=== PATIENT | female | born 1955 | race Caucasian/White ===

== ENCOUNTER 2020-02-09 18:33 | Inpatient (IN) ==
[2020-02-09] MEDS ORDERED: TYLENOL PO ONE (19:13)
--- NOTE | 2020-02-09 19:50 | Diag Imaging Result Doc PS360 ---
EXAM: CHEST-PORTABLE 02/09/2020 HISTORY: SOB TECHNIQUE: Erect AP portable at 1941 COMMENT: There is alveolar opacity in the right costophrenic angle region which was not present on 03/03/2018. Otherwise are has been no significant change. IMPRESSION: Right lower lobe pneumonia. Electronically signed by Joel Aguilar 02/09/2020 7:48 PM
[2020-02-09 19:57] LABS: AGAP 14; ALB/GLOB RATIO 0.8; ALBUMIN 3.3 g/dL (3.5-5.0); ALKALINE PHOSPHATASE 98 U/L (32-104); BUN 11 mg/dL (8-22); CALCIUM 9.2 mg/dL (8.8-10.2); CHLORIDE 100 mmol/L (98-107); COSMO 272; CREATININE 0.8 mg/dL (0.5-0.9); ESTIMATED GFR > 60; GLUCOSE 105 mg/dL (70-104); GOT 19 U/L (10-30); GPT 6 U/L (10-36); POTASSIUM 5.1 mmol/L (3.5-5.1); SODIUM 136 mmol/L (136-145); TCO2 22 mmol/L (25-35); TOTAL BILIRUBIN 0.42 mg/dL (0.20-1.00); TOTAL PROTEIN 7.2 g/dL (6.3-8.3)
[2020-02-09 20:12] LABS: BASO% 0.8 % (0.0-0.8); HEMATOCRIT 24.7 % (37.0-47.0); HEMOGLOBIN 6.1 g/dL (12.0-16.0); MCH 13.5 PG (27-31); MCHC 24.7 g/dL (33-37); MCV 54.6 FL (81-99); MPV 8.7 FL (7.4-10.4); PLT 997 X1000 (130-400); RBC 4.52 XMIL (4.2-5.4); RDW 26.2 % (11.5-14.5); WBC 26.05 X1000 (4.8-10.8)
[2020-02-09] MEDS ORDERED: LEVAQUIN 750 MG/D5W 750 MG/150 ML IVPB IV ONE (20:15)
[2020-02-09] MEDS ORDERED: NS 1,000 ML IV ONE (20:15)
[2020-02-09 20:26] LABS: ANISOCYTOSIS 4+; EOS 1 % (1-10); HYPOCHROM 4+; LYMPHS 8 % (21-51); MONO 9 % (1-9); NRBC 8 % (0-0); SEGS 81 % (42-75)
[2020-02-09 20:28] LABS: MICROCYTOSIS 1+
[2020-02-09 20:29] LABS: TARGET CELLS OCCASIONAL
--- NOTE | 2020-02-09 20:53 | PROVIDER DOCUMENTATION ---
This chart was entered by Kaur Araya Scribe, acting as scribe for Mallory Cho CRNP. HPI-General Adult - General Chief Complaint: Fever Stated Complaint: FEVER/SOB/ Time Seen by Provider: 02/09/20 19:11 Source: patient Allergies/Adverse Reactions: Patient Allergies Allergy/AdvReac Type Severity Reaction Status Date / Time Penicillins AdvReac RASH Verified 02/09/20 18:59 Home Medications: Home Medication List Medication Instructions Recorded Confirmed Last Taken Type Ondansetron Odt [Zofran 4 mg Odt] 4 mg PO Q6H PRN PRN #20 tab 03/03/18 Unknown Rx Cephalexin [Keflex] 500 mg PO Q6HR #40 cap 03/07/18 Unknown Rx Hydrochlorothiazide 12.5 mg PO DAILY 03/07/18 03/07/18 Unknown History Lisinopril 40 mg PO DAILY 03/07/18 03/07/18 Unknown History Metoprolol Tartrate [Lopressor] 100 mg PO BID 03/07/18 03/07/18 Unknown History Ondansetron Odt [Zofran 8Mg Odt] 8 mg PO Q8H PRN PRN #10 tab 03/07/18 Unknown Rx - History of Present Illness -Gen Adult Nature of Presenting Problems: 64yof presents to ED cc dry cough, fever, SOB, sore throat with dryness and burning and nausea for last 3 days. She has hx of Endometrial cancer, HTN and DCHF. She is febrile but in no acute distress upon exam. Location of Pain/Injury: reports: generalized Quality of Pain: reports: aching Severity: reports: mild, moderate Onset/Duration: reports: 3 days ago Context/Activities at Onset: reports: light activity Modifying Factors: improves with: nothing Associated Symptoms: reports: cough (dry), fever/chills, nausea, shortness of breath Similar Symptoms Previously?: No Recently seen or treated by another doctor?: No Review of Systems - Adult - REVIEW OF SYSTEMS - ADULT Constitutional: reports: see HPI, chills, fever. denies: fatique Eyes: reports: no symptoms reported Ears, Nose, Mouth & Throat: reports: see HPI, throat pain. denies: ear pain Cardiovascular: reports: no symptoms reported Respiratory: reports: see HPI, cough (dry) Gastrointestinal: reports: see HPI, nausea Genitourinary: reports: no symptoms reported Musculoskeletal: reports: no symptoms reported Integumentary: reports: no symptoms reported Neurological: reports: no symptoms reported Psychiatric: reports: no symptoms reported Endocrine: reports: no symptoms reported Hematologic/Lymphatic: reports: no symptoms reported Allergic/Immunologic: reports: no symptoms reported All Other Systems: Reviewed and Negative Past History - Adult - PAST MEDICAL HISTORY-ADULT Review of Records: reports: Nursing Assessment Review, Medications Reviewed, Social history reviewed & non-contributory. Major Childhood Illnesses: reports: denies history Cardiovascular: reports: HTN Respiratory: reports: denies history Gastrointestinal: reports: denies history Obstetrical/Gynecological: reports: denies history Genitourinary: reports: chronic UTI's Musculoskeletal: reports: arthritis Neurological: reports: denies history Endocrine/Immune: reports: denies history Other Conditions: reports: denies history - PRIOR SURGERIES/PROCEDURES Surgical/Procedure History: reports: none - IMMUNIZATION STATUS Childhood Immunizations: See Nurse Assessment Flu Vaccine: See Nurse Assessment - FAMILY HISTORY Family History: reviewed, not pertinent - SOCIAL HISTORY Smoking: denies Physical Exam-General - PHYSICAL EXAM-ADULT Initial Vital Signs Reviewed: Yes - CONSTITUTIONAL General Appearance: appears well, alert. negative: anxious, combative - EYES Eyes: PERRL/EOMI, pink conjunctivae. negative: photophobia - HEAD, EARS, NOSE, MOUTH & THROAT HENMT: normocephalic/atraumatic, moist mucous membranes. negative: angioedema - NECK Neck: non-tender, full range of motion, supple, normal inspection. negative: C- spine tenderness - RESPIRATORY Respiratory: chest non-tender, lungs clear, normal breath sounds. negative: crackles, rhonchi - CARDIOVASCULAR Cardiovascular: normal peripheral pulses, regular rate, rhythm, no edema, no murmur. negative: bradycardia, tachycardia - GASTROINTESTINAL (ABDOMEN) Abdominal Exam: normal bowel sounds, non tender, soft. negative: guarding, rebo und - LYMPHATIC Lymphatic: no adenopathy. negative: enlargement - MUSCULOSKELETAL Back Exam: normal inspection, no CVA tenderness, no vertebral tenderness Extremity: swelling (R>L bLE edema). negative: deformity - SKIN Integumentary: normal color, warm/dry. negative: diaphoresis, jaundice - PSYCHIATRIC Psych/Mental Status: normal mood/affect, oriented x 3. negative: anxious Progress - PLAN OF CARE/RESULTS Progress/Plan/Lab Results: Vital Signs - 8 hr 02/09/20 18:57 Temperature 100 F H Pulse Rate 99 H Respiratory Rate 18 Blood Pressure 146/77 O2 Sat by Pulse Oximetry 98 02/09/20 18:50 Influenza Screen - Final Nasopharyngeal 02/09/20 18:50 Group A Strep Rapid Antigen - Final Throat Laboratory Results - last 24 hr 02/09/20 02/09/20 02/09/20 18:50 18:50 18:50 WBC RBC Hgb Hct MCV MCH MCHC RDW Std Deviation Plt Count MPV Neut % (Auto) Lymph % (Auto) Norman % (Auto) Eos % (Auto) Baso % (Auto) Neut # (Auto) Lymph # (Auto) Norman # (Auto) Eos # (Auto) Baso # (Auto) Sodium 136 Potassium 5.1 Chloride 100 Carbon Dioxide 22 L Anion Gap 14 BUN 11 Creatinine 0.8 Estimated GFR/1.73 m2 > 60 BUN/Creatinine Ratio 14 Glucose 105 H Calculated Osmolality 272 Calcium 9.2 Total Bilirubin 0.42 AST 19 ALT 6 L Alkaline Phosphatase 98 Troponin T High Sens 23 H Total Protein 7.2 Albumin 3.3 L Globulin 3.9 Albumin/Globulin Ratio 0.8 Plasma Lactate 2.4 H 02/09/20 20:04 WBC 26.05 H RBC 4.52 Hgb 6.1 L Hct 24.7 L MCV 54.6 L MCH 13.5 L MCHC 24.7 L RDW Std Deviation 26.2 H Plt Count 997 H MPV 8.7 Neut % (Auto) Not Reportable Lymph % (Auto) Not Reportable Norman % (Auto) Not Reportable Eos % (Auto) Not Reportable Baso % (Auto) 0.8 Neut # (Auto) Not Reportable Lymph # (Auto) Not Reportable Norman # (Auto) Not Reportable Eos # (Auto) Not Reportable Baso # (Auto) 0.20 Sodium Potassium Chloride Carbon Dioxide Anion Gap BUN Creatinine Estimated GFR/1.73 m2 BUN/Creatinine Ratio Glucose Calculated Osmolality Calcium Total Bilirubin AST ALT Alkaline Phosphatase Troponin T High Sens Total Protein Albumin Globulin Albumin/Globulin Ratio Plasma Lactate Orders Category Date Time Status CHEST-PORTABLE [RAD] Stat Exams 02/09/20 19:12 Completed BLOOD CULTURE [BLDCUL] Stat Lab 02/09/20 20:05 Ordered CBC WITH DIFF [HEME] Stat Lab 02/09/20 20:04 Results COMPREHENSIVE METABOLIC PANEL [CHEM] Stat Lab 02/09/20 18:50 Completed DIRECT STREP Stat Lab 02/09/20 18:50 Completed INFLUENZA SCREEN A/B Stat Lab 02/09/20 18:50 Completed LACTATE, PLASMA [CHEM] Stat Lab 02/09/20 18:50 Completed TROPONIN T HIGH SENSITIVITY Stat Lab 02/09/20 18:50 Completed Acetaminophen [Tylenol] Med 02/09/20 19:13 Discontinued 1,000 mg PO NOW ONE EKG [EKG] Stat Ther 02/09/20 19:12 Ordered Result Diagrams: 02/09/20 20:04 02/09/20 18:50 - XRAY 1 XRAY: Bilateral XRAY Study: Chest Impression: See EMR Report (IMPRESSION: Right lower lobe pneumonia. Electronically signed by Joel Aguilar 02/09/2020 7:48 PM) - CONSULTS/PCP/HOSPITALIST Notification #1 *Consult/PCP/Hospitalist*: Dr. Waddell Time Discussed: 20:52 Consult Disposition: Admit Departure - Departure Date of Disposition Decision: 02/09/20 Time of Disposition Decision: 20:37 DIAGNOSIS: Right lower lobe pneumonia Qualifiers: Pneumonia type: due to unspecified organism Qualified Code(s): J18.9 - Pneumonia, unspecified organism Disposition: ADMITTED INPATIENT 09 Certified Medical Emergency: Emergent Condition: Stable Referrals and Follow-Ups: Jacqueline Dumont CRNP [Primary Care Provider] - - Critical Care Note This patient required my direct & personal management of CC.: No Attestation - Physician/ CAROLE Attestation Patient care was provided by Advanced Practice Provider:: Yes Advanced Practice Provider:: Mallory Cho Advanced Practice Provider documentation review:: The Mid-level provider documentation, treatment plan and medical decision making was reviewed by the physician who agrees with all treatment and medical decision making by the MLP. The physician spent face to face time with patient:: Yes Advanced Practice Provider documentation review:: Supervising physician onsite and consulted in the evaluation and care of this patient. The physician did have a face to face encounter with the patient. This chart was documented by the indicated scribe, (Kaur Araya Scribe) and accurately reflects the services I performed and decisions made by me, Mallory Cho CRNP, as attested by the provider's signature.
--- NOTE | 2020-02-09 22:13 | HISTORY AND PHYSICAL ---
PRIMARY CARE PROVIDER: Jacqueline Dumont. CHIEF COMPLAINT: Shortness of breath, fever, sore throat for 3 days. HISTORY OF PRESENTING ILLNESS: A 64-year-old female with a history of endometrial cancer and hypertension presented to emergency department with 3 days history of having shortness of breath, sore throat, and fever. The patient states that the symptoms were worsening. Subsequently she had come to the emergency department. In the ED she was evaluated. She had imaging done which did show pneumonia. Subsequently she will require admission for further management. At the time of my examination, patient denied any headache, nausea, vomiting, diarrhea, hemoptysis, melena, weight changes, but complained of fever, sore throat and shortness of breath. PAST MEDICAL HISTORY: Includes endometrial cancer, hypertension. PAST SURGICAL HISTORY: Hysterectomy, splenectomy, bowel resection. ALLERGIES: Penicillin. CURRENT MEDICATIONS: Include lisinopril 40 mg p.o. daily, metoprolol 100 mg p.o. b.i.d. SOCIAL HISTORY: She denies any history of smoking, alcohol or illicit drug use. FAMILY HISTORY: No history of coronary disease. REVIEW OF SYSTEMS: Fourteen point review of systems is as in HPI. Other systems negative. PHYSICAL EXAMINATION: GENERAL: Cooperative, friendly female. She is resting more comfortably now. VITAL SIGNS: Temperature 100 degrees, pulse 99, respiration 18, blood pressure 146/77. HEENT: Atraumatic, normocephalic. Extraocular movements intact. PERRLA. NECK: No masses. CHEST: Bibasilar rales. CARDIOVASCULAR: Regular rate and rhythm. ABDOMEN: Soft. Positive bowel sounds. EXTREMITIES: No edema. NEUROLOGIC: She is awake, alert, oriented x3. : No bladder distention. SKIN: Warm. LABORATORIES AND STUDIES: WBC 26.05, hemoglobin 6.1, hematocrit 24.7, platelets 997,000. Sodium 136, potassium 5.1, chloride 100, CO2 22, BUN is 11, creatinine 0.8, glucose is 105. Plasma lactate is 2.4. ASSESSMENT: This is a 64-year-old female with a history of endometrial cancer, hypertension who presented to emergency department with 3 days history of having sore throat, fever and shortness of breath. She was evaluated in the emergency department. She was found to have pneumonia on imaging. Subsequently, she will require admission for further management. 1. Pneumonia. 2. Hypertension. 3. Thrombocytosis. PLAN: 1. We will admit patient to medical floor with telemetry. 2. We will check blood cultures. Start patient on IV antibiotics. 3. Monitor blood pressure closely. 4. Repeat laboratories and do further evaluation for thrombocytosis. 5. We will put patient on DVT prophylaxis with SCDs. 6. We will continue to follow and reassess, make further recommendation based on patient's clinical course. cc: Wander Waddell MD
[2020-02-09] MEDS ORDERED: ZOFRAN IV PRN (22:53)
[2020-02-10] MEDS: NS 1,000 ML IV SCH ×3 (00:30→21:36)
[2020-02-10 01:25] LABS: URINE SOURCE CLEAN CATCH
[2020-02-10 01:29] LABS: BILIRUBIN URINE NEGATIVE (NEGATIVE); BLOOD URINE NEGATIVE (NEGATIVE); COLOR YELLOW; GLUCOSE URINE NEGATIVE (NEGATIVE); KETONE URINE NEGATIVE (NEGATIVE); LEUKOCYTES URINE NEGATIVE (NEGATIVE); NITRITE URINE NEGATIVE (NEGATIVE); PH URINE 6.5; PROTEIN URINE NEGATIVE (NEGATIVE); SP GRAVITY URINE 1.008; TURBIDITY URINE CLEAR (CLEAR); UR EPITHELIAL CELLS <10 /HPF (<10); URINE BACTERIA NEGATIVE /HPF; URINE RBC <10 /HPF (<10); URINE WBC <10 /HPF (<10); UROBILINOGEN URINE NORMAL (NORMAL)
[2020-02-10 06:26] LABS: BASO# 0.05 X1000 (0.0-0.2); BASO% 0.2 % (0.0-0.8); EOS# 0.22 X1000 (0.0-0.7); HEMATOCRIT 25.5 % (37.0-47.0); HEMOGLOBIN 6.2 g/dL (12.0-16.0); LYMPH# 4.57 X1000 (1.2-3.4); LYMPH% 20.5 % (20.5-51.1); MCH 13.7 PG (27-31); MCHC 24.3 g/dL (33-37); MCV 56.2 FL (81-99); MONO% 12.6 % (1.7-9.3); NEUT# 14.61 X1000 (1.4-6.5); NEUT% 65.7 % (42.2-75.2); PLT 210 X1000 (130-400); RBC 4.54 XMIL (4.2-5.4); RDW 26.5 % (11.5-14.5); WBC 22.25 X1000 (4.8-10.8)
[2020-02-10 06:39] LABS: AGAP 13; BUN 11 mg/dL (8-22); CALCIUM 9.2 mg/dL (8.8-10.2); CHLORIDE 102 mmol/L (98-107); COSMO 272; CREATININE 0.7 mg/dL (0.5-0.9); ESTIMATED GFR > 60; GLUCOSE 110 mg/dL (70-104); POTASSIUM 4.1 mmol/L (3.5-5.1); SODIUM 136 mmol/L (136-145); TCO2 21 mmol/L (25-35)
[2020-02-10] MEDS: PRINIVIL PO SCH (08:40)
[2020-02-10] MEDS: LOPRESSOR PO SCH ×2 (08:40→21:34)
--- NOTE | 2020-02-10 18:44 | SEPSIS: TISSUE PERFUSION ASSMT ---
Sepsis: Tissue Perfusion Assmt - Physical Exam Assessment Date: 02/10/20 Time Assessment Initialized: 18:40 Vital Signs: Last Vital Signs Temp 98.8 F 02/10/20 17:05 Pulse 95 H 02/10/20 17:05 Resp 20 02/10/20 17:05 BP 156/72 02/10/20 17:05 Pulse Ox 100 02/10/20 17:05 Height 5 ft 4 in Weight 125.333 kg Lung Sounds: crackles Heart Sounds: Regular Capillary Refill Time: Less Than 2 Seconds Peripheral Pulse Evaluation: radial (R): 2+, radial (L): 2+, dorsalis-pedis (R): 2+, dorsalis-pedis (L): 2+, posterior tibialis (R): 2+, posterior tibialis (L): 2+ Skin Exam: pink - Alternative Fluid Bolus Bolus Option: Alternative Fluid Resuscitation Bolus for morbidly obese patients with a BMI >30, Refer to [facility] [place] Body Weight Chart for Reference. - Impression Impression: Tissue Perfusion Adequate (Continue IV fluids at current rate and follow up lactated tomorrow morning.)
--- NOTE | 2020-02-10 19:28 | PROGRESS NOTE ---
DATE: 02/10/2020 INTERVAL HISTORY: Ms. Samayoa has not had any more fever episodes, except the temperature of 100 degrees initially. She remains partly tachycardic. She is saturating well. She was found to have a hemoglobin of 6.2, though she denies any bleeding. Apparently, her hemoglobin was 9.9 before. Her platelet count dropped from 997,000 to 210,000, though she previously had splenectomy. SUBJECTIVE: Ms. Samayoa denies any chest pain. She denies shortness of breath at rest. She is coughing but it is dry. She is feeling slightly better than before. PHYSICAL EXAMINATION: Vital signs: Temperature 98.8 degrees, pulse 95, respiratory rate 20, blood pressure 156/72 she is saturating 100% on 2 L nasal cannula. General: Ms. Samayoa is not in acute distress. HEENT: Oral cavity is moist. Lungs: Air entry bilaterally equal. No wheeze or rhonchi. She had crackles in the right infrascapular region. Cardiovascular: S1, S2 normal. No tachycardic. No murmur or gallop. Abdomen: Obese, soft, nontender. Extremities: No lower extremity edema. Neurologic: She is alert and oriented x3. LABS: Suggest WBC of 22,000, hemoglobin 6.2, platelets of 210,000. Her potassium is 4.1. MICROBIOLOGY: Blood cultures are in lab. Influenza screen was negative. COVID testing is positive. ASSESSMENT AND PLAN: 1. Sepsis and acute hypoxic respiratory failure due to right lower lobe pneumonia, likely community-acquired pneumonia. I will continue her on intravenous levofloxacin and intravenous fluids. Follow up with CBC and BMP tomorrow. Coronavirus Disease 2019 (COVID 19) testing is pending. 2. History of essential hypertension. Continue her home metoprolol and lisinopril. 3. History of metastatic end-stage endometrial carcinoma. 4. Status post splenectomy. Aware. 5. Microcytic hypochromic anemia. I will follow up with iron panel. I will start her on intravenous Protonix IV b.i.d. and we will consider giving her blood transfusion. DISPOSITION: Continue to monitor the patient inside the hospital. Plan of care discussed with her. Her questions have been answered. cc: Daron Sheffield MD
[2020-02-10] MEDS: TYLENOL PO PRN (21:33)
[2020-02-10] MEDS: PROTONIX IV SCH (21:34)
[2020-02-10] MEDS: SODIUM CHLORIDE 0.9% INJ SCH (21:34)
[2020-02-10] MEDS: LEVAQUIN 750 MG/D5W 750 MG/150 ML IVPB IV SCH (21:58)
[2020-02-11 06:43] LABS: AGAP 15; BUN 9 mg/dL (8-22); CHLORIDE 101 mmol/L (98-107); COSMO 271; CREATININE 0.8 mg/dL (0.5-0.9); ESTIMATED GFR > 60; GLUCOSE 112 mg/dL (70-104); POTASSIUM 4.1 mmol/L (3.5-5.1); SODIUM 136 mmol/L (136-145); TCO2 20 mmol/L (25-35)
[2020-02-11 06:44] LABS: IRON SATURATION 4 %; TIBC 365 ug/dL; TOTAL IRON 13 ug/dL (49-151); UNBOUND IRON 352 ug/dL (112-346)
[2020-02-11 06:53] LABS: FERRITIN 25 ng/mL (13-150)
[2020-02-11] MEDS: PROTONIX IV SCH ×2 (07:37→21:00)
[2020-02-11] MEDS: SODIUM CHLORIDE 0.9% INJ SCH (07:37)
[2020-02-11] MEDS: PRINIVIL PO SCH ×2 (07:37→09:54)
[2020-02-11] MEDS: LOPRESSOR PO SCH ×3 (07:41→22:42)
[2020-02-11 09:08] LABS: HEMATOCRIT 22.2 % (37.0-47.0); HEMOGLOBIN 5.5 g/dL (12.0-16.0); MCH 13.8 PG (27-31); MCHC 24.8 g/dL (33-37); MCV 55.6 FL (81-99); PLT 970 X1000 (130-400); RBC 3.99 XMIL (4.2-5.4); RDW 26.2 % (11.5-14.5); WBC 22.31 X1000 (4.8-10.8)
[2020-02-11] MEDS ORDERED: NS 500 ML IV ONE (09:23)
[2020-02-11 09:27] LABS: ANISOCYTOSIS 2+; BANDS 2 % (0-1); HYPOCHROM 2+; LYMPHS 26 % (21-51); MICROCYTOSIS 3+; MONO 6 % (1-9); NRBC 1 % (0-0); POIKILOCYTOSIS 1+; SEGS 64 % (42-75)
--- NOTE | 2020-02-11 17:53 | PROGRESS NOTE ---
DATE: 02/11/2020 INTERVAL HISTORY: Ms. Samayoa had drop in her hemoglobin and she has been receiving 1 unit of blood transfusion. She did not have any other acute overnight events. SUBJECTIVE: She is feeling better. She states she is feeling stronger. She denies any chest pain or shortness of breath. She has occasional cough when she uses incentive spirometry without any expectoration. She denies use of [id number]-[id number] nonsteroidal antiinflammatory medication. VITALS: Temperature 98.2 degrees, pulse 70, respiratory rate 18, blood pressure 160/90. She is saturating 100% on 2 L nasal cannula. PHYSICAL EXAMINATION: Morbidly obese not in acute distress.HEENT: Oral cavity is moist. She has conjunctival pallor. No cyanosis, clubbing, or icterus. Lungs: Air entry bilaterally equal. No wheeze, rhonchi, or crackles except right infrascapular region where she has inspiratory crackles. Cardiovascular: S1, S2 normal. No murmur or gallop. Abdomen: Obese, soft, nontender. Extremity: No lower extremity edema. She is alert and oriented x3. LABS: Suggestive of WBC 22,000, hemoglobin 5.5, platelets 970,000. MICROBIOLOGY: Stool occult blood test was negative. Blood culture, throat culture, influenza screen have been negative. No new imaging. ASSESSMENT AND PLAN: 1. Sepsis and acute hypoxic respiratory failure due to right lower lobe community-acquired pneumonia. Continue intravenous levofloxacin. Follow up urine Streptococcus and Legionella antigen. COVID-19 test has been negative. 2. Iron deficiency hypochromic microcytic anemia. I will give her 1 unit of blood transfusion. Continue patient on intravenous Protonix b.i.d. I will get CT scan of the abdomen and pelvis to rule out recurrence of endometrial cancer involving small bowel and consult GI for further recommendation. 3. History of metastatic endometrial cancer, status post hysterectomy, small bowel resection, splenectomy, which is likely responsible for thrombocytosis. I will request outpatient records. 4. Others. Continue metoprolol, lisinopril for essential hypertension; start iron multivitamin for iron deficiency anemia next. DISPOSITION: Monitor patient inside the hospital. She was allowed to ask questions. All of her questions have been answered. cc: Daron Sheffield MD
--- NOTE | 2020-02-11 19:13 | Diag Imaging Result Doc PS360 ---
EXAM: CT ABD/PELVIS W/PO AND IV CON HISTORY: Evaluate for metastatic lesion. TECHNIQUE: CT abdomen and pelvis with oral and intravenous contrast COMPARISON: 03/03/2018 FINDINGS: There is a small right-sided pleural effusion measuring 2 cm posteriorly and inferiorly midline. There are infiltrates in the lower right lung. Moderate to large hiatal hernia. There are several large stones within the gallbladder. The spleen has been removed. No focal hepatic abnormality. Normal pancreas and right adrenal gland. There is a 12 mm left adrenal nodule. There are tiny renal cysts. No hydronephrosis. No aortic aneurysm. No bowel obstruction. The uterus has been removed. No pelvic mass. Urinary bladder is moderately distended and appears normal. No ascites. IMPRESSION: 1.Right lower lobe pneumonia with a small right pleural effusion 2.Moderate to large hiatal hernia 3.Cholelithiasis 4.Splenectomy 5.Stable left adrenal nodule 6.Hysterectomy This exam was performed using automated exposure control, adjustment of mA or kV according to patient size, and/or use of iterative reconstruction technique. Electronically signed by Rob Encinas 02/11/2020 7:11 PM
[2020-02-11] MEDS: THERA M PLUS PO SCH (21:40)
[2020-02-11] MEDS: FERROUS SULFATE PO SCH (21:40)
[2020-02-11] MEDS: LEVAQUIN 750 MG/D5W 750 MG/150 ML IVPB IV SCH (22:41)
[2020-02-12 08:28] LABS: AGAP 14; ALB/GLOB RATIO 0.6; ALBUMIN 2.6 g/dL (3.5-5.0); ALKALINE PHOSPHATASE 74 U/L (32-104); BUN 8 mg/dL (8-22); CALCIUM 8.9 mg/dL (8.8-10.2); CHLORIDE 102 mmol/L (98-107); COSMO 273; CREATININE 0.8 mg/dL (0.5-0.9); ESTIMATED GFR > 60; GLUCOSE 111 mg/dL (70-104); GOT 17 U/L (10-30); GPT 7 U/L (10-36); POTASSIUM 3.9 mmol/L (3.5-5.1); SODIUM 137 mmol/L (136-145); TCO2 21 mmol/L (25-35); TOTAL BILIRUBIN 0.54 mg/dL (0.20-1.00); TOTAL PROTEIN 6.7 g/dL (6.3-8.3)
[2020-02-12 08:31] LABS: BASO# 0.09 X1000 (0.0-0.2); BASO% 0.5 % (0.0-0.8); EOS# 0.37 X1000 (0.0-0.7); EOS% 1.9 % (0.0-10.0); HEMATOCRIT 20.7 % (37.0-47.0); HEMOGLOBIN 5.2 g/dL (12.0-16.0); LYMPH# 4.92 X1000 (1.2-3.4); LYMPH% 25.1 % (20.5-51.1); MCH 14.6 PG (27-31); MCHC 25.1 g/dL (33-37); MCV 58.3 FL (81-99); MONO% 13.8 % (1.7-9.3); MPV 8.8 FL (7.4-10.4); NEUT% 58.7 % (42.2-75.2); PLT 1009 X1000 (130-400); RBC 3.55 XMIL (4.2-5.4); RDW 29.2 % (11.5-14.5); WBC 19.58 X1000 (4.8-10.8)
[2020-02-12] MEDS ORDERED: NS 500 ML IV ONE (09:13)
[2020-02-12 09:43] LABS: BANDS 2 % (0-1); HYPOCHROM 3+; LYMPHS 18 % (21-51); MONO 7 % (1-9); NRBC 31 % (0-0); SEGS 67 % (42-75); TARGET CELLS 2+
[2020-02-12 09:44] LABS: ANISOCYTOSIS 2+; LARGE PLATELETS OCCASIONAL; MICROCYTOSIS 1+
[2020-02-12 09:45] LABS: SCHISTOCYTES 1+
[2020-02-12] MEDS ORDERED: VANCOMYCIN IV PER PHARMACY MISC SCH (09:45)
[2020-02-12] MEDS ORDERED: NS 500 ML IV SCH (10:00)
[2020-02-12] MEDS ORDERED: NS IV ONE (11:00)
[2020-02-12] MEDS ORDERED: VANCOMYCIN IV ONE (11:00)
[2020-02-12] MEDS: PROTONIX IV SCH (11:30)
[2020-02-12] MEDS: SODIUM CHLORIDE 0.9% INJ SCH (11:30)
[2020-02-12] MEDS: FERROUS SULFATE PO SCH (11:33)
[2020-02-12] MEDS: THERA M PLUS PO SCH (11:33)
[2020-02-12] MEDS: PRINIVIL PO SCH (11:33)
[2020-02-12] MEDS: LOPRESSOR PO SCH ×2 (11:33→21:50)
[2020-02-12] MEDS ORDERED: DIPRIVAN 1% ONE (13:44)
[2020-02-12] MEDS ORDERED: XYLOCAINE-MPF 2% ONE (13:44)
--- NOTE | 2020-02-12 14:33 | ENDOSCOPY OPERATIVE NOTE ---
[facility] ENDOSCOPY OPERATIVE NOTE , EGD PROCEDURE REPORT PATIENT: Jackie Samayoa ADMISSION DATE: 02/12/2020 MR#: [id number] : 1955 PROCEDURE DATE: 02/12/2020 SURGEON: Arthur Schaefer MD STATUS: inpatient CREW LEADER: Jaimee Harrison and Galo Perea PREOPERATIVE DIAGNOSIS: The patient is a 64 yr old female here for an EGD due to iron deficiency ane mina and anemia secondary to chronic blood loss. PROCEDURE PERFORMED: EGD, diagnostic MEDICATIONS: Per Anesthesia TOPICAL ANESTHETIC: none CONSENT: The patient understands the risks and benefits of the procedure and understands that these r isks include, but are not limited to: sedation, allergic reaction, infection, perforation and/or bleeding. Alternative means of evaluation and treatment include, among others: physical exam, x-rays, and/or surgical intervention. The patient elects to proceed with this endoscopic procedure. HISORY AND PHYSICAL: 02/12/2020 DESCRIPTION OF PROCEDURE: During intra-op preparation period all mechanical and medical equipment was checked for proper function. Hand hygiene and appropriate measures for infection prevention was taken. After the risks, benefits and alternatives of the procedure were thoroughly explained, Informed consent was verified, confirmed and timeout was successfully executed by the treatment team. The patient was anesthetized with topical anesthesia and the [id number] ([id number]) endoscope was introduced through the mouth and advanced to the second portion of the duoden um. Retroflexion was performed in the stomach and revealed a hiatal hernia. The gastroscope was then slowly withdrawn and removed. ESOPHAGUS: A 6 cm hiatal hernia was noted. The esophagus was otherwise normal. STOMACH: The mucosa of the stomach appeared normal. DUODENUM: The duodenal mucosa showed no abnormalities. SPECIMENS REMOVED: No ADVERSE EVENTS: There were no complications. POSTOPERATIVE DIAGNOSIS: 1. 6 cm hiatal hernia 2. The esophagus was otherwise normal 3. The mucosa of the stomach appeared normal 4. The duodenal mucosa showed no abnormalities RECOMMENDATIONS: 1. Resume pre-procedure medications 2. Follow up with referring physician 3. Resume regular diet 4. Schedule colonoscopy as out patient. 5. Transfer to floor REPEAT EXAM: Arthur Schaefer MD eSigned: Arthur Schaefer MD 02/12/2020 2:32 PM cc: Marissa Hyatt MD PATIENT NAME: Jackie Samayoa MR#: [id number]
--- NOTE | 2020-02-12 16:32 | PROGRESS NOTE ---
DATE: 02/12/2020 INTERVAL HISTORY: Ms. Samayoa had further drop in her hemoglobin and she underwent EGD which was pretty much unremarkable. Her CT scan of the abdomen and pelvis did not have any acute findings or recurrence of cancer. SUBJECTIVE: Ms. Samayoa is feeling fine. She denies any chest pain or shortness of breath. She has occasional dry cough. However, sputum has not been collected. She denies nausea, vomiting. She often times complains of burning in the stomach. VITALS: Temperature 98.1 degrees, pulse 80, respiratory 18, blood pressure 132/58, saturating 100% on 2 L nasal cannula. PHYSICAL EXAMINATION: Morbidly obese, not in acute distress.HEENT: Oral cavity is moist. Lungs: Air entry bilaterally equal. No wheeze or rhonchi. Mild crackles on right infrascapular region. Cardiovascular: S1, S2 normal. No murmur or gallop. Abdomen: Obese, soft, nontender. Extremity: No lower extremity edema. Neurologic: She is alert and oriented x3. She had conjunctival pallor. No hepatomegaly. LABS: Suggestive of WBC 19.5, hemoglobin 5.2, platelet 1009. Her BUN is 8, creatinine 0.8. Her glucose is 111. Her liver function tests are normal. LDH is mildly elevated. Stool occult blood test was negative. IMAGING: Abdomen and pelvis CT had right lower lobe pneumonia. ASSESSMENT AND PLAN: 1. Right lower lobe community-acquired pneumonia. Considering her persistent leukocytosis, I will add intravenous vancomycin to intravenous levofloxacin. Follow up urine Streptococcus Legionella antigen, sputum culture. COVID-19 test has been negative. 2. Iron deficiency hypochromic microcytic anemia. EGD detected hiatal hernia without any obvious source of bleeding. Change Protonix to once a day. Continue iron multivitamin tablets. She would need outpatient GI evaluation. I will transfuse her with an additional 2 units of packed red blood cells and follow up reticulocyte response. I may consider Heme-Onc evaluation in future. 3. History of metastatic endometrial cancer status post hysterectomy, small bowel resection and splenectomy, which is likely responsible for thrombocytosis. Her outpatient records did not have any CBC done recently, so I do not have a baseline to compare to, and I did discuss with CT scan findings with her in detail. 4. Others. Her sepsis and acute hypoxic respiratory failure have resolved. Continue metoprolol and lisinopril for essential hypertension; followup daily CBC; followup haptoglobin. Start SCD for mechanical DVT prophylaxis with enoxaparin. DISPOSITION: Monitor patient inside the hospital as I watch her hemoglobin. Her abdomen and pelvis CT had detected right lower lobe pneumonia with small effusion, hiatal hernia, moderate to large size, cholelithiasis which is asymptomatic, splenectomy, hysterectomy and left adrenal nodules and I discussed with her about these findings. I allowed her to ask questions. All of her questions have been answered. cc: Daron Sheffield MD MTDD
[2020-02-12] MEDS: LOVENOX SUBQ SCH (19:03)
--- NOTE | 2020-02-12 19:08 | GASTROENTEROLOGY CONSULTATION ---
DATE: 02/12/2020 REASON FOR CONSULTATION: Severe anemia. HISTORY OF PRESENT ILLNESS: This is a 64-year-old female who came in to the hospital for shortness of breath, fever, sore throat. She did have workup for COVID-19 virus and it was negative. The patient was found to be severely anemic. She has received packed red blood cells since admission. She states she has felt a little stronger today after receiving blood. She has denied visible blood in the stool but had noticed some black stools on occasion. She denies NSAID use. She has a history of endometrial cancer with metastasis. She follows at [facility]. She had surgery in 2018, including hysterectomy, splenectomy, bowel resection. She was diagnosed with pneumonia. She is currently on O2 by nasal cannula. Currently denies shortness of breath. She denies abdominal pain. PAST MEDICAL HISTORY: Endometrial cancer, hypertension. PAST SURGICAL HISTORY: Hysterectomy, splenectomy, bowel resection. ALLERGIES: Penicillin causing rash. MEDICATIONS: Lisinopril 40 mg daily. Lopressor 100 mg daily. SOCIAL HISTORY: She is . She has 2 children. Denies tobacco or alcohol use. FAMILY HISTORY: No reported family history of gastrointestinal cancers. REVIEW OF SYSTEMS: Per history of present illness. PHYSICAL EXAMINATION: Vital Signs: Temperature 98.4 degrees, pulse 74, respirations 20, blood pressure 140/68. General: Patient was awake and alert no acute distress. HEENT: Normocephalic, atraumatic. Pupils equal, round, reactive to light. Sclerae nonicteric. Respiratory: Lung sounds essentially clear. Cardiovascular: Regular rate and rhythm. Abdomen: Obese. Midline scar from her hysterectomy and other abdominal surgeries from cancer. Otherwise abdomen is soft, nontender. Extremities: Some mild lower extremity edema noted. Neurologic: Cranial nerves 2-12 grossly intact. Patient is awake and alert, oriented to person, place, and time. DIAGNOSTIC RESULTS: Hemoccult stool test was negative. Hematology: WBC 19.58, hemoglobin 5.2, hematocrit 20.7, MCV 58.3, platelets 1009. Chemistry: Sodium 137, potassium 3.9, chloride 102, CO2 21, BUN 8, creatinine 0.8 glucose 111, calcium 8.9. Iron 13, TIBC 365, percent saturation 4, ferritin 25, total bilirubin 0.54, AST 17, ALT 7, alkaline phosphatase 74, LDH 281, vitamin B12 289, folate 25.9. IMAGING: Abdominal, pelvis CT scan showed right lower lobe pneumonia with small right pleural effusion, moderate to large hiatal hernia. Cholelithiasis, splenectomy, stable left adrenal nodule and history of hysterectomy. ASSESSMENT AND PLAN: 1. Pneumonia, on antibiotics. 2. Severe iron deficiency anemia. 3. Imaging studies showing large hiatal hernia. 4. History of metastatic endometrial cancer. The patient follows at [facility]. The patient has been held NPO. We will proceed with EGD for further evaluation and workup of her severe anemia. I have discussed EGD procedure along with benefits and risks, and patient wishes to proceed. Further plans to be made as needed. Continue PPI. I have discussed this case with Dr. Schaefer. Dictated by JUNE Orozco for Arthur Schaefer MD cc: JUNE Sotelo MD
[2020-02-13] MEDS: LEVAQUIN 750 MG/D5W 750 MG/150 ML IVPB IV SCH ×2 (02:27→13:47)
[2020-02-13] MEDS: PRILOSEC PO SCH (06:36)
[2020-02-13 07:32] LABS: RETIC-HE 17.7 PG (28.2-36.6)
[2020-02-13 08:00] LABS: HEMOGLOBIN 7.6 g/dL (12.0-16.0); MCH 16.7 PG (27-31); MCHC 27.1 g/dL (33-37); MCV 61.5 FL (81-99); MPV 9.1 FL (7.4-10.4); PLT 989 X1000 (130-400); RBC 4.55 XMIL (4.2-5.4); RDW 33.1 % (11.5-14.5); WBC 17.27 X1000 (4.8-10.8)
[2020-02-13 08:25] LABS: AGAP 16; BUN 6 mg/dL (8-22); CALCIUM 8.7 mg/dL (8.8-10.2); CHLORIDE 101 mmol/L (98-107); COSMO 270; CREATININE 0.7 mg/dL (0.5-0.9); ESTIMATED GFR > 60; GLUCOSE 99 mg/dL (70-104); POTASSIUM 4.7 mmol/L (3.5-5.1); SODIUM 136 mmol/L (136-145); TCO2 19 mmol/L (25-35)
[2020-02-13] MEDS: FERROUS SULFATE PO SCH (08:29)
[2020-02-13] MEDS: LOPRESSOR PO SCH ×2 (08:29→20:07)
[2020-02-13] MEDS: THERA M PLUS PO SCH (08:29)
[2020-02-13] MEDS: PRINIVIL PO SCH (08:29)
[2020-02-13 08:45] LABS: BANDS 4 % (0-1); EOS 4 % (1-10); LYMPHS 16 % (21-51); MONO 14 % (1-9); NRBC 4 % (0-0); SEGS 62 % (42-75)
[2020-02-13 08:46] LABS: ANISOCYTOSIS 3+; HOWELL-JOLLY BODIES 1+; HYPOCHROM 3+; MICROCYTOSIS 3+; POIKILOCYTOSIS 3+; TARGET CELLS 1+
[2020-02-13 08:47] LABS: BURR CELLS 1+; LARGE PLATELETS 1+; SCHISTOCYTES OCCASIONAL
[2020-02-13] MEDS: VANCOMYCIN 1,800 MG in NS 500 ML IV SCH (11:26)
--- NOTE | 2020-02-13 18:04 | PROGRESS NOTE ---
DATE: 02/13/2020 INTERVAL HISTORY: Ms. Bender underwent EGD which did not have any active bleeding. She tolerated the procedure well. She also received a total of 2 units of blood transfusion, which she has tolerated well so far. SUBJECTIVE: Ms. Sanders is feeling stronger. She denies any chest pain or shortness of breath. She still has occasional cough without expectoration. OBJECTIVE: Vitals: Temperature 98.5 degrees, pulse 74, respiratory rate 20, blood pressure 126/68, saturating 100% on 2 L nasal cannula. General: She does not appear in any acute distress, morbidly obese. HEENT: Oral cavity is moist. Mild conjunctival pallor. No cyanosis, clubbing, or icterus. Lungs: Air entry bilaterally equal. No wheeze or rhonchi. She has persistent crackles on right infrascapular region. Cardiovascular: S1, S2 normal. No murmur or gallop. Abdomen: Obese, soft, nontender. Extremity: No lower extremity edema. She is alert and oriented x3. LABORATORY DATA: Suggestive of decreasing WBC to 17,000, hemoglobin 7.6, platelet 989,000. BUN is 6, creatinine 0.7. No positive microbiological data. No new imaging. ASSESSMENT AND PLAN: 1. Right lower lobe pneumonia. She could have silent aspiration from large hiatal hernia as well. Continue intravenous vancomycin and intravenous levofloxacin. Urine Streptococcus Legionella antigen has been unremarkable. Coronavirus Disease 2019 test has been negative. Today is day 4 of Levaquin and day 2 of vancomycin. 2. Iron deficiency hypochromic microcytic anemia. EGD did not have an active bleed. Continue proton pump inhibitors once a day and multivitamin tablet. She is status post 3 units of packed red blood cells transfusion. Gastroenterology recommends outpatient colonoscopy. 3. History of metastatic endometrial cancer status post hysterectomy, small bowel resection and splenectomy, likely responsible for thrombocytosis. I do not have her baseline CBC to compare with. CT scan of the abdomen and pelvis does not have any recurrence of cancer. 4. Her sepsis and acute hypoxic respiratory failure has resolved. I will continue metoprolol and lisinopril for essential hypertension. Her hemolysis panel has been unremarkable. I will continue sequential compression devices for deep venous thrombosis prophylaxis with enoxaparin. DISPOSITION: I will follow up with CBC tomorrow, and if her hemoglobin is stable, I would anticipate discharge in next 24 to 48 hours with outpatient CBC and GI followup. I conveyed this plan to her. She is in agreement. cc: Daron Sheffield MD
--- NOTE | 2020-02-13 18:37 | GASTROENTEROLOGY PROGRESS NOTE ---
DATE: 02/13/2020 SUBJECTIVE: Patient states she is feeling better. She had an EGD on 02/12/2020, indications for anemia. Findings showed a 6 cm hiatal hernia, otherwise esophagus and stomach were normal. Patient has received 3 units of packed red blood cells since admission. Her hemoglobin and hematocrit today are 7.6 and 28.0. OBJECTIVE: Vital Signs: Temperature 98.5 degrees, pulse 74, respirations 20, blood pressure 126/68. General: Patient is awake and alert, in no acute distress. LABORATORY: Hematology: WBC 17.27, hemoglobin 7.6, hematocrit 28.0, MCV 61.5. Chemistry: Sodium 136, potassium 4.7, chloride 101, CO2 19, BUN 6, creatinine 0.7, glucose 99. ASSESSMENT: 1. Iron deficiency anemia. 2. Hiatal hernia. 3. Pneumonia. 4. History of metastatic endometrial cancer. PLAN: Continue PPI. Would recommend outpatient colonoscopy for further evaluation of her anemia. I have given her contact information to call and set up her outpatient colonoscopy. Further plans to be made according to findings. Patient voices understanding. Patient was also seen by Dr. Schaefer. Dictated by JUNE Orozco for Arthur Schaefer MD cc: JUNE Sotelo MD
[2020-02-13] MEDS: LOVENOX SUBQ SCH (18:47)
[2020-02-13] MEDS: TYLENOL PO PRN (20:07)
[2020-02-14] MEDS: VANCOMYCIN 1,800 MG in NS 500 ML IV SCH (03:46)
[2020-02-14] MEDS: PRILOSEC PO SCH (06:01)
[2020-02-14 06:39] LABS: RETIC% 1.04 % (0.8-2.1); RETIC-HE 18.5 PG (28.2-36.6)
[2020-02-14 06:50] LABS: BASO# 0.11 X1000 (0.0-0.2); BASO% 0.7 % (0.0-0.8); EOS# 0.49 X1000 (0.0-0.7); EOS% 2.9 % (0.0-10.0); HEMATOCRIT 26.5 % (37.0-47.0); HEMOGLOBIN 7.2 g/dL (12.0-16.0); IMM GRAN# 0.13 X1000 (0.0-0.04); IMM GRAN% 0.8 % (0.0-0.5); LYMPH# 3.24 X1000 (1.2-3.4); LYMPH% 19.2 % (20.5-51.1); MCH 16.8 PG (27-31); MCHC 27.2 g/dL (33-37); MCV 61.9 FL (81-99); MONO# 2.44 X1000 (0.11-0.59); MONO% 14.5 % (1.7-9.3); MPV 8.7 FL (7.4-10.4); NEUT# 10.46 X1000 (1.4-6.5); NEUT% 61.9 % (42.2-75.2); PLT 1125 X1000 (130-400); RBC 4.28 XMIL (4.2-5.4); WBC 16.87 X1000 (4.8-10.8)
[2020-02-14 06:56] LABS: AGAP 11; BUN 7 mg/dL (8-22); CALCIUM 8.8 mg/dL (8.8-10.2); CHLORIDE 102 mmol/L (98-107); COSMO 269; CREATININE 0.7 mg/dL (0.5-0.9); ESTIMATED GFR > 60; GLUCOSE 107 mg/dL (70-104); POTASSIUM 3.7 mmol/L (3.5-5.1); SODIUM 135 mmol/L (136-145); TCO2 22 mmol/L (25-35)
[2020-02-14 08:01] LABS: EOS 2 % (1-10); LYMPHS 16 % (21-51); MONO 12 % (1-9); NRBC 2 % (0-0); SEGS 70 % (42-75)
[2020-02-14 08:02] LABS: ANISOCYTOSIS 2+; HYPOCHROM 3+; POIKILOCYTOSIS 2+; TARGET CELLS 1+
[2020-02-14 08:03] LABS: BURR CELLS 1+; LARGE PLATELETS 1+; SCHISTOCYTES OCCASIONAL
[2020-02-14] MEDS: LOPRESSOR PO SCH (08:16)
[2020-02-14] MEDS: PRINIVIL PO SCH (08:16)
[2020-02-14] MEDS: THERA M PLUS PO SCH (08:16)
[2020-02-14] MEDS: FERROUS SULFATE PO SCH (08:17)
[2020-02-14] MEDS: LEVAQUIN 750 MG/D5W 750 MG/150 ML IVPB IV SCH (13:15)
[2020-02-14 16:31] VITALS: BP 164/79
[2020-02-14] MEDS: LOVENOX SUBQ SCH (17:37)
--- NOTE | 2020-02-14 19:24 | DISCHARGE SUMMARY ---
ADMISSION DATE: 02/09/2020 DISCHARGE DATE: 02/14/2020 DISCHARGE DISPOSITION: Home. DISCHARGE CONDITION: Hemodynamically stable. DISCHARGE CONDITION: Miss Samayoa has stable hemoglobin since last 24 hours. She has not elicited any active bleeding signs. She denies any chest pain or shortness of breath. Her Hb are stable and she is feeling stronger than before. She is advised to have a follow-up blood count done 5 days within discharge and have followup with Dr. Schaefer for colonoscopy outpatient as well as regular doctor to discuss about this admission. I have advised to continue taking iron pills and complete antibiotic course. She understood it. She was allowed to ask questions. Her questions have been answered. DISCHARGE DIAGNOSES: 1. Sepsis and acute respiratory failure. 2. Right lower lobe pneumonia. Differential includes community-acquired pneumonia versus aspiration pneumonia due to large hiatal hernia. 3. Hiatal hernia with gastroesophageal reflux disease. 4. Iron deficiency hypochromic microcytic anemia requiring blood transfusion. 5. History of metastatic endometrial cancer status post hysterectomy, small bowel resection, and splenotomy. 6. 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 7. Morbid obesity. OTHER DIAGNOSES: 1. History of hypertension. 2. History of endometrial cancer. DISCHARGE MEDICATIONS: 1. Lisinopril 40 mg daily. 2. Metoprolol tartrate 100 mg b.i.d. 3. Doxycycline 100 mg b.i.d.; 15 tablets have been prescribed. 4. Ferrous sulfate 325 mg daily; 30 tablets with 1 refill was prescribed. 5. Omeprazole 20 mg daily; 30 tablets with 1 refill has been prescribed. 6. Multivitamin 1 tablet daily; 30 tablets with 1 refill was prescribed. PHYSICAL EXAMINATION: vital signs At the time of discharge: Temperature 98.2 degrees, pulse 76, respiratory rate 20, blood pressure 160/79, saturating 100% on room air. general: Morbidly obese. Not in acute distress. heent: Oral cavity is moist. Mild conjunctival pallor. No cyanosis, clubbing, or icterus. Lungs: Air entry bilaterally equal. No wheeze or rhonchi. Occasional crackles on right infrascapular region. Cardiovascular: S1, S2 normal. Not tachycardic. No murmur or gallop. Abdomen: Obese, soft, nontender. Previous scar of abdominal surgery. Extremities: No lower extremity edema. Neurologic: She is alert and oriented x3. She is able to come out of bed and use her walker. LABORATORIES AT THE TIME OF ADMISSION AND DISCHARGE: Her WBC was 26,000 on presentation which improved to 16,000 at the time of discharge, her hemoglobin is 7.2, platelet 1125,000. Her sodium is 135, potassium 3.7, BUN 7, creatinine 0.7. Her ferritin on presentation was 25, iron level was 13, total iron binding capacity of 365, and iron saturation was 4%. Her bilirubin was 0.5. Her vitamin B12 was 289. Folate of 25. Her COVID-19 test was negative. Her urine streptococcal and Legionella antigens were negative. MICROBIOLOGY: Blood culture, throat culture: Group A rapid streptococcal antigen. Influenza screen and stool occult blood tests were negative. IMAGING DURING HOSPITAL ADMISSION: Chest x-ray on February 08 had right lower lobe pneumonia. Abdomen/pelvis CT on February 10 had right lower lobe pneumonia and a small right pleural effusion, moderate to large hiatal hernia, cholelithiasis, splenectomy, stable left adrenal nodule, and hysterectomy. CONSULTATION DURING HOSPITAL ADMISSION: Gastroenterology, Dr. Schaefer. PROCEDURE DURING HOSPITAL ADMISSION: The patient underwent endoscopy on 02/12/2020 which had a 6 cm hiatal hernia, esophagus otherwise was normal, mucosa of the stomach appeared normal, and duodenal mucosa showed no abnormality. HOSPITAL COURSE SUMMARY: Miss Samayoa is a 64-year-old lady who presented initially on 02/09/2020 with chief complaints of shortness of breath, fever, and sore throat of about 3 days duration. On presentation to the emergency room she was found to have temperature of 100 degrees, pulse of 99, respiratory rate of 20, blood pressure of 146/77, and oxygen saturation of 98%. She had marked leukocytosis of 26,000. Her lactate on presentation was 2.4. Chest x-ray suggested right lower lobe pneumonia. She was resuscitated with intravenous fluids and intravenous antibiotics were started and she was admitted for further management. Her blood culture results remain negative. Her COVID-19 test was negative. She was not able to produce sputum. With intravenous antibiotics, however, her symptoms improved and she started feeling better, she was not short of breath, and she had not had any fever during rest of the course. So it was decided to discharge her on oral antibiotics. On presentation Miss Samayoa was also found to have anemia with hemoglobin of 5.5. She also had marked iron deficiency with low ferritin and elevated total iron-binding capacity with low iron saturation. She received blood transfusion of 3 units and was started on iron multivitamin tablets. EGD was unremarkable and her fecal occult test was negative. So considering she did not have active bleed, it was decided to discharge her with outpatient followup with Gastroenterology who are planning colonoscopy. At the time of discharge, 35 minutes were spent discharging this patient. She was allowed to ask questions. All of her questions were satisfactorily answered. cc: Daron Sheffield MD MTDD
== END 2020-02-14 19:00 | disposition home or self-care (01) | DRG 871 ==
LOC: ED 18:33 → 4N 22:10 → SUATTDRO 22:10 → 4N 02-11 21:10
PROVIDERS: ATTEND Internal Medicine